=== PATIENT | female | born 1940 | race Caucasian/White ===

== ENCOUNTER 2016-08-09 10:39 | Day surgery (SDC) | payer OTHER ==
[~2016-08-09 10:39] MED LIST: LR 1,000 ML ONE
[2016-08-09] MEDS ORDERED: LR 1,000 ML ONE ×2 (11:32→12:47)
[2016-08-09] MEDS ORDERED: MYLICON DROPS (DOSE) MISC ONE (13:40)
[2016-08-09] MEDS ORDERED: DIPRIVAN 1% ONE (14:18)
[2016-08-09] MEDS ORDERED: NEO-SYNEPHRINE ONE (14:39)
[2016-08-09] MEDS ORDERED: XYLOCAINE-MPF 2% ONE (14:40)
[2016-08-09] MEDS ORDERED: EPHEDRINE ONE (14:40)
[2016-08-09 14:57] VITALS: BP 130/53
--- NOTE | 2016-08-09 15:27 | OPERATIVE NOTE ---
PROCEDURE DATE: 08/09/2016 PROCEDURE: EGD, colonoscopy, polypectomy. PREOPERATIVE DIAGNOSIS: Dyspepsia, weight loss and history of colon polyp. POSTOPERATIVE DIAGNOSIS: Hiatal hernia otherwise normal EGD. Colon polyps and diverticulosis. HISTORY: This is a 76-year-old, white female, has had dyspepsia and has been losing weight. She has history of colon polyp. Panendoscopy was done to identify the etiology and would treat accordingly. PROCEDURE: Informed consent obtained from the patient. Patient brought to the endoscopy unit and was premedicated as per Anesthesia. After adequate sedation, while she was lying in left lateral position, the gastroscope was introduced into the posterior pharynx and advanced under direct vision into the esophagus. Esophagus in the upper middle part was normal. Distal esophagus showed 2 cm long sliding hiatal hernia without any evidence of esophagitis, webs, rings, varices. The scope was passed through the esophagus into the stomach. Stomach was examined both in straight and retroflexed view, which revealed normal cardia, fundus, body, and antrum. The scope was then passed through the normal pylorus, into the duodenal bulb, and then 2nd part duodenum. Both appeared to be normal. Scope was removed. Patient was then repositioned for colonoscopy. Digital rectal exam was performed, which was normal. The scope was then gently introduced into the rectum and advanced under direct vision through the parts of colon, all the way up to the cecum. The cecum was identified by ileocecal valve and appendiceal orifice. The scope was withdrawn paying close attention to details. Preparation was good. The visualized portion of the colon revealed 1 polyp in the hepatic flexure and the 2nd polyp in the splenic flexure. These were 5-6 mm in size, smooth surface. Polypectomy was performed by snare cautery without difficulty. No complications noted. Left side of the colon showed evidence of moderate diverticulosis. These diverticula were present predominantly in the sigmoid colon area. Retroflexed view of rectum revealed no pathology. Scope was then removed. Patient tolerated the procedure well. No complications noted. Patient was then transferred to the recovery area in a stable condition. IMPRESSION: 1. Hiatal hernia, otherwise normal EGD. 2. Colon polyps. Polypectomy performed. 3. Diverticulosis, very extensive. RECOMMENDATIONS: I would start her on MiraLAX 17 g in a glass of water or juice every day. Continue high fiber, high residue diet and plenty of fluid to drink daily. I will follow up the biopsy report in 2 weeks. Follow up with me in 6-8 weeks and follow up with Dr. Perales as scheduled.
== END 2016-08-09 15:01 | disposition home or self-care (01) ==
LOC: ENDO 10:39
PROVIDERS: ATTEND Internal Medicine Gastroenterology
DX: D12.3 Benign neoplasm of transverse colon (principal); R10.13 Epigastric pain; K44.9 Diaphragmatic hernia without obstruction or gangrene; K57.30 Diverticulosis of large intestine without perforation or abscess without bleeding; J44.9 Chronic obstructive pulmonary disease, unspecified; I10 Essential (primary) hypertension
CPT/HCPCS: 88305; J2370; J7120

== ENCOUNTER 2019-07-07 08:52 | Inpatient (IN) ==
[2019-07-07] MEDS ORDERED: NS 1,000 ML IV ONE (09:04)
--- NOTE | 2019-07-07 09:06 | PROVIDER DOCUMENTATION ---
HPI-Syncope/Dizziness - General Stated Complaint: neuropathy Time Seen by Provider: 07/07/19 09:00 Source: patient, EMS Allergies/Adverse Reactions: Patient Allergies Allergy/AdvReac Type Severity Reaction Status Date / Time Penicillins Allergy Intermediate RASH Verified 11/06/17 05:37 Home Medications: Home Medication List Medication Instructions Recorded Confirmed Last Taken Type Albuterol Sulfate Inhaler 2 puff IH PRN PRN 12/10/12 11/06/17 1 Week Ago History [Ventolin Hfa] ~10/30/17 Digoxin [Lanoxin] 125 microgm PO DAILY 12/10/12 10/31/17 11/05/17 09:00 History Estradiol 0.5 mg PO DAILY 12/10/12 10/31/17 11/05/17 09:00 History Losartan [Cozaar] 0.5 tab PO DAILY 12/10/12 10/31/17 11/05/17 09:00 History Omeprazole [Prilosec] 20 mg PO DAILY@0700 12/10/12 10/31/17 11/05/17 09:00 History Pramipexole [Mirapex] 0.25 mg PO BID 12/10/12 11/06/17 11/05/17 21:00 History Furosemide [Lasix] 20 mg PO EVERY OTHER DAY 11/02/14 11/06/17 11/04/17 09:00 History Lorazepam 0.5 mg PO QHS 11/02/14 11/06/17 11/05/17 09:00 History Spironolactone [Aldactone] 25 mg PO DAILY 11/02/14 10/31/17 11/05/17 09:00 History Aspirin 81 mg PO DAILY 08/07/16 11/06/17 11/05/17 09:00 History Furosemide 40 mg PO EVERY OTHER DAY 08/07/16 10/31/17 11/05/17 09:00 History Budesonide/Formoterol Fumarate 10.2 gm IH BID 10/31/17 10/31/17 11/05/17 21:00 History [Symbicort 160-4.5 Mcg Inhaler] Cyclobenzaprine [Flexeril] 5 mg PO DAILY 10/31/17 11/06/17 11/05/17 09:00 History Ipratropium/Albuterol Sulfate 3 ml IH 4XDAY 10/31/17 10/31/17 11/05/17 21:00 History [Iprat-Albut 0.5-3(2.5) mg/3 ml] Multivitamin [Multivitamins] 1 each PO DAILY 10/31/17 10/31/17 11/05/17 09:00 History Sulindac 150 mg PO DAILY 10/31/17 10/31/17 11/05/17 09:00 History Umeclidinium [place] [Incruse 62.5 mcg IH DAILY 10/31/17 10/31/17 11/05/17 09:00 History Ellipta] Hydrocodone/APAP 7.5 mg/325 mg 1 ea PO Q4H PRN PRN #14 tab 11/07/17 Unknown Rx [Orient-7.5] - History of Present Illness-Syncope/Dizzy Nature of Presenting Problem: Patient brought by EMS for chief complaint of "flare-up of neuropathy." Patient states she has frequent falls and passes out a lot, and has been having several admissions and work-ups in the past by Dr. Perales, and "no one can find out why I keep doing this." States she has fairly frequent episodes where she will pass out or fall and not remember the circumstances surrounding the fall. States this morning she got up to go to the bathroom, remembers going into the restroom, then found her self on the floor near her front door. Patient said she crawled to the door to help herself up and called 911. Denies and pain or injury. Denies incontinence of urine or stool. Denies tongue injury. Last time this occurred, was two weeks ago, when she "fell flat on my face," but she did not seek treatment afterwards. Prior Episodes: reports: recent history Onset/Duration: reports: unsure, abrupt, just prior to arrival Timing: reports: improving, constant, changing over time Position/Activity at time of episode: reports: activity (had just gone to the bathroom) Symptoms prior to episode: reports: none Context: reports: unknown, collapsed. denies: incontinent of urine, incontinent of stool Loss of Consciousness: unsure Location of injury. (If syncope resulted in an injury.): reports: none Current Symptoms: reports: none/feels normal Similar symptoms previously: reports: workup for same problem Recently Seen Here or By Another Healthcare Provider: No (sees Dr. Perales frequently, has an appointment tomorrow.) - Dizziness Severity in ED: reports: mild Dizziness Related Current/Associated Symptoms: reports: none/feels normal Any recent trauma/injury?: reports: minor (2 weeks ago), to head Modifying Factors: improves with: nothing Patient usually:: reports: walks without assistance Review of Systems - Adult - REVIEW OF SYSTEMS - ADULT Constitutional: reports: no symptoms reported Eyes: reports: no symptoms reported Ears, Nose, Mouth & Throat: reports: no symptoms reported Cardiovascular: reports: no symptoms reported Respiratory: reports: no symptoms reported Gastrointestinal: reports: no symptoms reported Genitourinary: reports: no symptoms reported Musculoskeletal: reports: no symptoms reported Integumentary: reports: no symptoms reported Neurological: reports: no symptoms reported Psychiatric: reports: no symptoms reported Endocrine: reports: no symptoms reported Hematologic/Lymphatic: reports: no symptoms reported Allergic/Immunologic: reports: no symptoms reported All Other Systems: Reviewed and Negative Past History - Adult - PAST MEDICAL HISTORY-ADULT Review of Records: reports: Old Records Reviewed, Nursing Assessment Review, Medications Reviewed, Social history reviewed & non-contributory. Major Childhood Illnesses: reports: denies history Cardiovascular: reports: cardiac disease, CHF, HTN Respiratory: reports: COPD Gastrointestinal: reports: denies history Obstetrical/Gynecological: reports: denies history Genitourinary: reports: denies history Musculoskeletal: reports: denies history Neurological: reports: other (peripheral neuropathy, chronic weakness) Psychiatric: reports: denies history Endocrine/Immune: reports: denies history Other Conditions: reports: denies history - PRIOR SURGERIES/PROCEDURES Surgical/Procedure History: reports: reviewed, not pertinent - IMMUNIZATION STATUS Childhood Immunizations: UTD - FAMILY HISTORY Family History: reviewed, not pertinent - SOCIAL HISTORY Smoking: non-smoker Substance Use: none/never Alcohol Use Frequency: never Living Situation: alone Physical Exam-General - PHYSICAL EXAM-ADULT Initial Vital Signs Reviewed: Yes (VSSAF) - CONSTITUTIONAL General Appearance: appears well, alert, no apparent distress - EYES Eyes: PERRL/EOMI, pink conjunctivae - HEAD, EARS, NOSE, MOUTH & THROAT HENMT: normocephalic/atraumatic, moist mucous membranes, normal ENT inspection, other (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 negative: meningismus - RESPIRATORY Respiratory: chest non-tender, lungs clear, normal breath sounds, no pleuratic chest pain, no respiratory distress, no accessory muscle use - CARDIOVASCULAR Cardiovascular: normal peripheral pulses, regular rate, rhythm, no edema, no JVD , systolic murmur, gallop/S3. negative: no gallop, no murmur - GASTROINTESTINAL (ABDOMEN) Abdominal Exam: normal bowel sounds, non tender, soft, no organomegaly, no pulsatile mass - LYMPHATIC Lymphatic: no adenopathy - MUSCULOSKELETAL Back Exam: normal inspection, no CVA tenderness, no vertebral tenderness Extremity: normal range of motion, no pedal edema, no calf tenderness, normal capillary refill, tenderness (and erythema to left foot.) Peripheral Pulses: radial (R): 2+, radial (L): 2+, dorsalis-pedis (R): 1+, dorsalis-pedis (L): 1+ - SKIN Integumentary: normal color, normal turgor, warm/dry, erythema (to left foot) - NEUROLOGIC 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, grossly normal, no motor/sensory deficits - PSYCHIATRIC Psych/Mental Status: normal mood/affect, normal thought content, normal thought process, oriented x 3 Progress - PLAN OF CARE/RESULTS Progress/Plan/Lab Results: Vital Signs - 8 hr 07/07/19 09:51 07/07/19 10:53 Temperature 98.1 F Pulse Rate 100 H 99 H Respiratory Rate 20 25 H Blood Pressure 168/91 190/96 O2 Sat by Pulse Oximetry 100 96 Laboratory Results - last 24 hr 07/07/19 07/07/19 07/07/19 09:48 09:48 09:58 WBC 11.36 H RBC 4.94 Hgb 14.5 Hct 47.1 H MCV 95.3 MCH 29.4 MCHC 30.8 L RDW Std Deviation 13.1 Plt Count 264 MPV 10.0 Immature Gran % (Auto) 0.2 Neut % (Auto) 80.3 H Lymph % (Auto) 12.2 L [place] % (Auto) 6.0 Eos % (Auto) 0.7 Baso % (Auto) 0.6 Immature Gran # (Auto) 0.02 Neut # (Auto) 9.12 H Lymph # (Auto) 1.39 [place] # (Auto) 0.68 H Eos # (Auto) 0.08 Baso # (Auto) 0.07 PT INR PTT (Actin FS) Sodium 140 Potassium 4.2 Chloride 98 Carbon Dioxide 30 Anion Gap 12 BUN 20 Creatinine 0.6 Estimated GFR/1.73 m2 > 60 BUN/Creatinine Ratio 33 Glucose 96 POC Glucose Calculated Osmolality 282 Calcium 9.5 Magnesium Total Bilirubin 0.56 AST 34 H ALT 14 Alkaline Phosphatase 91 Troponin T High Sens Zpz-H-Snhhjrkxqge Pept Total Protein 6.9 Albumin 3.9 Globulin 3.0 Albumin/Globulin Ratio 1.3 Plasma Lactate TSH Urine Source Urine Color Urine Turbidity Urine pH Ur Specific Half Way Urine Protein Ur Glucose (Stick) Ur Ketones (Stick) Urine Blood Urine Nitrite Urine Bilirubin Urobilinogen Dipstick Urine Leukocytes Urine WBC (Auto) Urine RBC (Auto) U Epithel Cells (Auto) Urine Bacteria (Auto) Digoxin 0.8 L Urine Opiates Screen Ur Oxycodone Screen Ur Methadone, Qual Ur Barbiturates Screen Ur Phencyclidine Scrn Ur Amphetamines Screen U Benzodiazepines Scrn Urine Cocaine Screen U Cannabinoids Screen Plasma/Serum Ethyl Alc 07/07/19 07/07/19 07/07/19 09:58 09:58 09:58 WBC RBC Hgb Hct MCV MCH MCHC RDW Std Deviation Plt Count MPV Immature Gran % (Auto) Neut % (Auto) Lymph % (Auto) [place] % (Auto) Eos % (Auto) Baso % (Auto) Immature Gran # (Auto) Neut # (Auto) Lymph # (Auto) [place] # (Auto) Eos # (Auto) Baso # (Auto) PT 12.8 INR 0.95 PTT (Actin FS) 33.0 Sodium Potassium Chloride Carbon Dioxide Anion Gap BUN Creatinine Estimated GFR/1.73 m2 BUN/Creatinine Ratio Glucose POC Glucose Calculated Osmolality Calcium Magnesium Total Bilirubin AST ALT Alkaline Phosphatase Troponin T High Sens 41 H [id number]-Dlpjspqizmc Pept Total Protein Albumin Globulin Albumin/Globulin Ratio Plasma Lactate TSH 2.57 Urine Source Urine Color Urine Turbidity Urine pH Ur Specific Half Way Urine Protein Ur Glucose (Stick) Ur Ketones (Stick) Urine Blood Urine Nitrite Urine Bilirubin Urobilinogen Dipstick Urine Leukocytes Urine WBC (Auto) Urine RBC (Auto) U Epithel Cells (Auto) Urine Bacteria (Auto) Digoxin Urine Opiates Screen Ur Oxycodone Screen Ur Methadone, Qual Ur Barbiturates Screen Ur Phencyclidine Scrn Ur Amphetamines Screen U Benzodiazepines Scrn Urine Cocaine Screen U Cannabinoids Screen Plasma/Serum Ethyl Alc 07/07/19 07/07/19 07/07/19 09:58 09:58 09:58 WBC RBC Hgb Hct MCV MCH MCHC RDW Std Deviation Plt Count MPV Immature Gran % (Auto) Neut % (Auto) Lymph % (Auto) [place] % (Auto) Eos % (Auto) Baso % (Auto) Immature Gran # (Auto) Neut # (Auto) Lymph # (Auto) [place] # (Auto) Eos # (Auto) Baso # (Auto) PT INR PTT (Actin FS) Sodium Potassium Chloride Carbon Dioxide Anion Gap BUN Creatinine Estimated GFR/1.73 m2 BUN/Creatinine Ratio Glucose POC Glucose Calculated Osmolality Calcium Magnesium 1.9 Total Bilirubin AST ALT Alkaline Phosphatase Troponin T High Sens [id number]-K-Qcyzzgjcvdn Pept 1998 H Total Protein Albumin Globulin Albumin/Globulin Ratio Plasma Lactate TSH Urine Source Urine Color Urine Turbidity Urine pH Ur Specific Half Way Urine Protein Ur Glucose (Stick) Ur Ketones (Stick) Urine Blood Urine Nitrite Urine Bilirubin Urobilinogen Dipstick Urine Leukocytes Urine WBC (Auto) Urine RBC (Auto) U Epithel Cells (Auto) Urine Bacteria (Auto) Digoxin Urine Opiates Screen Ur Oxycodone Screen Ur Methadone, Qual Ur Barbiturates Screen Ur Phencyclidine Scrn Ur Amphetamines Screen U Benzodiazepines Scrn Urine Cocaine Screen U Cannabinoids Screen Plasma/Serum Ethyl Alc 07/07/19 07/07/19 07/07/19 10:05 10:06 10:38 WBC RBC Hgb Hct MCV MCH MCHC RDW Std Deviation Plt Count MPV Immature Gran % (Auto) Neut % (Auto) Lymph % (Auto) [place] % (Auto) Eos % (Auto) Baso % (Auto) Immature Gran # (Auto) Neut # (Auto) Lymph # (Auto) [place] # (Auto) Eos # (Auto) Baso # (Auto) PT INR PTT (Actin FS) Sodium Potassium Chloride Carbon Dioxide Anion Gap BUN Creatinine Estimated GFR/1.73 m2 BUN/Creatinine Ratio Glucose POC Glucose 78 Calculated Osmolality Calcium Magnesium Total Bilirubin AST ALT Alkaline Phosphatase Troponin T High Sens Uro-K-Favkbctdtwp Pept Total Protein Albumin Globulin Albumin/Globulin Ratio Plasma Lactate 1.9 TSH Urine Source CATH Urine Color YELLOW Urine Turbidity CLEAR Urine pH 7.[address] 1.018 Urine Protein TRACE A Ur Glucose (Stick) NEGATIVE Ur Ketones (Stick) NEGATIVE Urine Blood NEGATIVE Urine Nitrite NEGATIVE Urine Bilirubin NEGATIVE Urobilinogen Dipstick NORMAL Urine Leukocytes NEGATIVE Urine WBC (Auto) <10 Urine RBC (Auto) <10 U Epithel Cells (Auto) <10 Urine Bacteria (Auto) NEGATIVE Digoxin Urine Opiates Screen Ur Oxycodone Screen Ur Methadone, Qual Ur Barbiturates Screen Ur Phencyclidine Scrn Ur Amphetamines Screen U Benzodiazepines Scrn Urine Cocaine Screen U Cannabinoids Screen Plasma/Serum Ethyl Alc 07/07/19 10:38 WBC RBC Hgb Hct MCV MCH MCHC RDW Std Deviation Plt Count MPV Immature Gran % (Auto) Neut % (Auto) Lymph % (Auto) [place] % (Auto) Eos % (Auto) Baso % (Auto) Immature Gran # (Auto) Neut # (Auto) Lymph # (Auto) [place] # (Auto) Eos # (Auto) Baso # (Auto) PT INR PTT (Actin FS) Sodium Potassium Chloride Carbon Dioxide Anion Gap BUN Creatinine Estimated GFR/1.73 m2 BUN/Creatinine Ratio Glucose POC Glucose Calculated Osmolality Calcium Magnesium Total Bilirubin AST ALT Alkaline Phosphatase Troponin T High Sens Yvb-A-Zrlojxetvax Pept Total Protein Albumin Globulin Albumin/Globulin Ratio Plasma Lactate TSH Urine Source Urine Color Urine Turbidity Urine pH Ur Specific Half Way Urine Protein Ur Glucose (Stick) Ur Ketones (Stick) Urine Blood Urine Nitrite Urine Bilirubin Urobilinogen Dipstick Urine Leukocytes Urine WBC (Auto) Urine RBC (Auto) U Epithel Cells (Auto) Urine Bacteria (Auto) Digoxin Urine Opiates Screen NONE DETECTED Ur Oxycodone Screen NONE DETECTED Ur Methadone, Qual NONE DETECTED Ur Barbiturates Screen NONE DETECTED Ur Phencyclidine Scrn NONE DETECTED Ur Amphetamines Screen NONE DETECTED U Benzodiazepines Scrn NONE DETECTED Urine Cocaine Screen NONE DETECTED U Cannabinoids Screen NONE DETECTED Plasma/Serum Ethyl Alc Orders Category Date Time Status Cardiac Monitoring DIRECTED Care 07/07/19 09:04 Active Finger Stick Blood Sugar (ED) DIRECTED Care 07/07/19 09:04 Active Oxygen Therapy- ED Nursing DIRECTED Care 07/07/19 09:04 Active Saline Loc NOW Care 07/07/19 09:04 Active Heart Healthy Diet Diet 07/07/19 10:23 Active CHEST-PORTABLE [RAD] Stat Exams 07/07/19 09:[address] HEAD W/O CONTRAST [CT] Stat Exams 07/07/19 09:04 Completed ALCOHOL BLOOD Stat Lab 07/07/19 09:58 Completed BLOOD CULTURE [BLDCUL] Stat Lab 07/07/19 09:58 Results CBC WITH ELECTRONIC DIFF [HEME] Stat Lab 07/07/19 09:48 Completed COMPREHENSIVE METABOLIC PANEL [CHEM] Stat Lab 07/07/19 09:48 Completed DIGOXIN [TDM] Stat Lab 07/07/19 09:58 Completed LACTATE, PLASMA [CHEM] Stat Lab 07/07/19 10:05 Completed MAGNESIUM [CHEM] Stat Lab 07/07/19 09:58 Completed PRO B-NATRIURETIC PEPTIDE Stat Lab 07/07/19 09:58 Completed PROTIME WITH INR [COAG] Stat Lab 07/07/19 09:58 Completed PTT [COAG] Stat Lab 07/07/19 09:58 Completed TROPONIN T HIGH SENSITIVITY Stat Lab 07/07/19 09:58 Completed TSH Stat Lab 07/07/19 09:58 Completed URINALYSIS W/POSS RFLX CULT [URINALYSIS] Stat Lab 07/07/19 10:38 Completed URINE DRUG SCREEN Stat Lab 07/07/19 10:38 Completed 0.9% Sodium Chloride Inj [Ns] 1,000 ml Med 07/07/19 09:04 Discontinued IV 999 mls/hr Acetaminophen [Tylenol] Med 07/07/19 13:14 Discontinued 1,000 mg PO NOW ONE Clindamycin 900 mg/D5w Med 07/07/19 11:00 Discontinued 900 mg in 50 ml IV NOW Morphine Med 07/07/19 12:25 Discontinued 2 mg IV NOW ONE Ondansetron [Zofran] Med 07/07/19 12:25 Discontinued 4 mg IV NOW ONE Vancomycin 1 gm/Ns Med 07/07/19 10:40 Discontinued 1 gm in 250 ml IV NOW EKG [EKG] Stat Ther 07/07/19 09:04 Ordered Result Diagrams: 07/07/19 09:48 07/07/19 09:48 - REASSESSMENT Reassessment #1 Time Reassessed: 12:29 Status: improving (Given IVF and cleocin for cellulitis, morphine for pain) - EKG 1 Time of EKG reading by physician:: 08:59 EKG Read and Signed by:: Parish Parisi EKG Interpretation (*Must complete 3 of following elements*): Abnormal Rate: 100 Rhythm: NSR [place]: left QRS: LBB, poor R wave progression NH Interval: normal ST Wave: non-specific ST changes Prior EKG Comparison: unchanged from prior ([id number]) - CT/MRI 1 CT Study: Head Impression: Abnormal ( Signed EXAM: CT HEAD W/O CONTRAST HISTORY: stroke like symptoms TECHNIQUE: CT head without contrast COMPARISON: 02/25/2018 FINDINGS: No parenchymal hemorrhage. No epidural or subdural hematoma. No subarachnoid hemorrhage. There are chronic microvascular ischemic changes similar to the prior exam. No mass identified on this noncontrasted exam. No hydrocephalus. No sinus opacification. IMPRESSION: 1.No hemorrhage 2.Chronic microvascular ischemic changes This exam was performed using automated exposure control, adjustment of mA or kV according to patient size, and/or use of iterative reconstruction technique. Electronically signed by Julien Austin 07/07/2019 9:46 AM 07/07/19 0946 Interpreting Physician: Julien Austin MD Dictated Date/Time: 07/07/19 0945 cc: Parish Parisi MD; Juani Perales MD) - CONSULTS/PCP/HOSPITALIST Notification #1 *Consult/PCP/Hospitalist*: Diaz paged at 1220 Time Discussed: 13:17 Consult Disposition: Will see in ED, Admit Departure - Departure Date of Disposition Decision: 07/07/19 Time of Disposition Decision: 12:30 DIAGNOSIS: Syncope and collapse, Cellulitis of left foot Disposition: ADMITTED INPATIENT 09 Certified Medical Emergency: Emergent Condition: Fair Referrals and Follow-Ups: Juani Perales MD [Primary Care Provider] - - Critical Care Note This patient required my direct & personal management of CC.: No Attestation - Physician/ NERISSA Attestation Patient care was provided by Advanced Practice Provider:: No The physician spent face to face time with patient:: Yes Advanced Practice Provider documentation review:: Supervising physician onsite and consulted in the evaluation and care of this patient. The physician did have a face to face encounter with the patient.
--- NOTE | 2019-07-07 09:48 | Diag Imaging Result Doc PS360 ---
EXAM: CT HEAD W/O CONTRAST HISTORY: stroke like symptoms TECHNIQUE: CT head without contrast COMPARISON: 02/25/2018 FINDINGS: No parenchymal hemorrhage. No epidural or subdural hematoma. No subarachnoid hemorrhage. There are chronic microvascular ischemic changes similar to the prior exam. No mass identified on this noncontrasted exam. No hydrocephalus. No sinus opacification. IMPRESSION: 1.No hemorrhage 2.Chronic microvascular ischemic changes This exam was performed using automated exposure control, adjustment of mA or kV according to patient size, and/or use of iterative reconstruction technique. Electronically signed by Julien Austin 07/07/2019 9:46 AM
[2019-07-07 10:04] LABS: BASO# 0.07 X1000 (0.0-0.2); BASO% 0.6 % (0.0-0.8); EOS# 0.08 X1000 (0.0-0.7); EOS% 0.7 % (0.0-10.0); HEMATOCRIT 47.1 % (37.0-47.0); HEMOGLOBIN 14.5 g/dL (12.0-16.0); IMM GRAN# 0.02 X1000 (0.0-0.04); IMM GRAN% 0.2 % (0.0-0.5); LYMPH# 1.39 X1000 (1.2-3.4); LYMPH% 12.2 % (20.5-51.1); MCH 29.4 PG (27-31); MCHC 30.8 g/dL (33-37); MCV 95.3 FL (81-99); MONO# 0.68 X1000 (0.11-0.59); NEUT# 9.12 X1000 (1.4-6.5); NEUT% 80.3 % (42.2-75.2); PLT 264 X1000 (130-400); RBC 4.94 XMIL (4.2-5.4); RDW 13.1 % (11.5-14.5); WBC 11.36 X1000 (4.8-10.8)
[2019-07-07 10:16] LABS: AGAP 12; ALB/GLOB RATIO 1.3; ALBUMIN 3.9 g/dL (3.5-5.0); ALKALINE PHOSPHATASE 91 U/L (32-104); BUN 20 mg/dL (8-22); CALCIUM 9.5 mg/dL (8.8-10.2); CHLORIDE 98 mmol/L (98-107); COSMO 282; CREATININE 0.6 mg/dL (0.5-0.9); ESTIMATED GFR > 60; GLUCOSE 96 mg/dL (70-104); GOT 34 U/L (10-30); GPT 14 U/L (10-36); POTASSIUM 4.2 mmol/L (3.5-5.1); SODIUM 140 mmol/L (136-145); TCO2 30 mmol/L (25-35); TOTAL BILIRUBIN 0.56 mg/dL (0.20-1.00); TOTAL PROTEIN 6.9 g/dL (6.3-8.3)
[2019-07-07] MEDS ORDERED: CLINDAMYCIN 900 MG/NS 900 MG/50 ML IVPB IV ONE (10:40)
[2019-07-07] MEDS ORDERED: VANCOMYCIN 1 GM/NS 1 GM/250 ML IVPB IV ONE (10:40)
--- NOTE | 2019-07-07 10:53 | Diag Imaging Result Doc PS360 ---
EXAM: CHEST-PORTABLE 07/07/2019 HISTORY: stroke like symptoms TECHNIQUE: AP portable upright at 1016 COMMENT: There is hyperinflation of the lungs consistent with COPD. Considering differences in technique there has been no significant change since the previous study of 12/16/2012. IMPRESSION: COPD. Electronically signed by Norman Pandey 07/07/2019 10:51 AM
[2019-07-07 10:58] LABS: INR 0.95; PROTIME 12.8 Seconds (11.0-16.0)
[2019-07-07] MEDS ORDERED: CLINDAMYCIN 900 MG/D5W 900 MG/50 ML IVPB IV ONE (11:00)
[2019-07-07 11:02] LABS: URINE SOURCE CATH
[2019-07-07 11:06] LABS: BILIRUBIN URINE NEGATIVE (NEGATIVE); BLOOD URINE NEGATIVE (NEGATIVE); COLOR YELLOW; GLUCOSE URINE NEGATIVE (NEGATIVE); KETONE URINE NEGATIVE (NEGATIVE); LEUKOCYTES URINE NEGATIVE (NEGATIVE); NITRITE URINE NEGATIVE (NEGATIVE); PROTEIN URINE TRACE mg/dL (NEGATIVE); SP GRAVITY URINE 1.018; TURBIDITY URINE CLEAR (CLEAR); UROBILINOGEN URINE NORMAL (NORMAL)
[2019-07-07 11:07] LABS: UR EPITHELIAL CELLS <10 /HPF (<10); URINE BACTERIA NEGATIVE /HPF; URINE RBC <10 /HPF (<10); URINE WBC <10 /HPF (<10)
[2019-07-07 11:40] LABS: UR AMPHETAMINES QUAL NONE DETECTED (NONE DETECT); UR BARBITUATES QUAL NONE DETECTED (NONE DETECT); UR BENZODIAZEPIN QUAL NONE DETECTED (NONE DETECT); UR CANNABINOIDS QUAL NONE DETECTED (NONE DETECT); UR COCAINE QUAL NONE DETECTED (NONE DETECT); UR METHADONE QUAL NONE DETECTED (NONE DETECT); UR OPIATES QUAL NONE DETECTED (NONE DETECT); UR OXYCODONE QUAL NONE DETECTED (NONE DETECT); UR PCP QUAL NONE DETECTED (NONE DETECT)
[2019-07-07] MEDS ORDERED: MORPHINE IV ONE (12:25)
[2019-07-07] MEDS ORDERED: ZOFRAN IV ONE (12:25)
[2019-07-07] MEDS ORDERED: TYLENOL PO ONE (13:14)
[2019-07-07] MEDS ORDERED: ZOFRAN PO PRN (13:17)
--- NOTE | 2019-07-07 14:17 | EKG Report ---
Test Performed on : 07/07/2019 09:00:15 AM Test Reason : Stroke like symptoms Blood Pressure : / mmHG Vent. Rate : 100 BPM Atrial Rate : 100 BPM P-R Int : 144 ms QRS Dur : 138 ms QT Int : 368 ms P-R-T Axes : 084 -87 085 degrees QTc Int : 474 ms Normal sinus rhythm. Right atrial enlargement Left axis deviation Nonspecific intraventricular block Cannot rule out Anteroseptal infarct , age undetermined Abnormal ECG No previous ECGs available Unconfirmed Result
[2019-07-07] MEDS: ATIVAN PO SCH (23:34)
[2019-07-07] MEDS: MIRAPEX PO SCH (23:34)
[2019-07-07] MEDS: LEVAQUIN 500 MG/D5W 500 MG/100 ML IVPB IV SCH (23:34)
[2019-07-08] MEDS: TYLENOL PO PRN (02:00)
--- NOTE | 2019-07-08 04:47 | HISTORY AND PHYSICAL ---
SUBJECTIVE: Left leg swelling and redness. HISTORY OF PRESENT ILLNESS: 1. She is a 79-year-old, white female who has a syncope spells. Had a head injury. Recently seen in my office. Came back 2nd time in the ER, unable to walk with left leg swelling. Patient was found to have left leg cellulitis. Patient was seen in the ER. White cell count was high. The patient was brought in by EMS. She is losing weight. Extensive workup was done nothing was panned out. Basically admitted to the hospital for syncope workup. 2. Left leg cellulitis. 3. Cachexia. I spoke to the niece at bedside. 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 PAST SURGICAL HISTORY: Appendectomy, hysterectomy, bilateral cataract surgery, cholecystectomy, left inferior parathyroid adenoma excision. MEDICATIONS: Ventolin HFA 2 puffs as needed, Mirapex 0.25 p.o. b.i.d., losartan 50 daily, Lanoxin 125 daily, estradiol 0.5 mg daily, Prilosec 20 daily, lorazepam 0.5 at bedtime, Lasix 20 mg every other day, Aldactone 25 daily, aspirin 81 mg daily, Symbicort 160/4.5 one puff b.i.d., multivitamin 1 tablet daily, Flexeril 5 mg daily, DuoNeb q.4h as needed, Incruse 1 puff daily. ALLERGIES: Reported to penicillin. SOCIAL HISTORY: Single lives in [place]. No smoking. No alcohol. FAMILY HISTORY: Father at 96 from [place]. Mom of CHF at 92. HEALTH MAINTENANCE: Flu vaccine April 2019. Pneumococcal June 2014. Mammography May 2018. Colonoscopy August [address] Jarquin. REVIEW OF SYSTEMS: HEENT: Recent head injuries, some headaches. No vision problem. No earache. No sore throat. Neck: No neck pain. No goiter. No lymphadenopathies. Cardiopulmonary: No chest pain or shortness of breath. No PND. No orthopnea. GI: No difficulty in swallowing. No bleeding per rectum. : No history of hesitancy, frequency. Extremities: Left leg swelling. Neurologic: No focal symptoms or weakness. PHYSICAL EXAMINATION: VITAL SIGNS: Temperature is 97.8 degrees, pulse 93, blood pressure 116/69, on room air 99%, 5 feet 6, 83 pounds. HEENT: Very cachectic. Bruising is getting better. Pupils equal, reactive to light. TMs are normal. Nose and throat within normal limits. NECK: Supple. No lymphadenopathy. No goiter. CHEST: Bilateral air entry very poor. HEART: Sounds are very distant. ABDOMEN: Belly is soft, nontender. Good bowel sounds. EXTREMITIES: The left leg has cellulitis noted. NEUROLOGIC: No neurological deficits. INVESTIGATIONS: White cell count 11, hematocrit 47, platelets 264,000. PT/INR is normal. SMA 7 was normal. LFTs were normal. ProBNP 1998. Urinalysis is clear. Urine toxic screen is negative. RADIOLOGY PROCEDURES: CT head: No hemorrhage. Chronic microvascular ischemic changes. Chest x-ray: COPD. I did a CT of the chest, abdomen and pelvis May 2019: Advanced COPD. Right lower lobe noncalcified nodule, which is stable since 2010. Constipation. Myocardial perfusion scan was done by Dr. Vaz. No inducible ischemia. EF is about 46%. ASSESSMENT AND PLAN: 79-year-old white female admitted to the hospital. 1. Recurrent syncope, rule out cardiac arrhythmias. 2. Left leg cellulitis. IV antibiotics. 3. Chronic obstructive pulmonary disease with oxygen and bronchodilators. 4. Physical therapy consult for ambulation. 5. Reconcile home medications and we will follow up. cc: Gabo Perales MD
--- NOTE | 2019-07-08 07:23 | EKG Report ---
Test Performed on : 07/08/2019 06:58:49 AM Test Reason : cp Blood Pressure : / mmHG Vent. Rate : 097 BPM Atrial Rate : 097 BPM P-R Int : 176 ms QRS Dur : 126 ms QT Int : 364 ms P-R-T Axes : 082 -84 087 degrees QTc Int : 462 ms Normal sinus rhythm. Right atrial enlargement Left axis deviation Nonspecific intraventricular block Cannot rule out Anteroseptal infarct (cited on or before 07-JUL-2019) T wave abnormality, consider lateral ischemia Abnormal ECG When compared with ECG of 07-JUL-2019 09:00, (Unconfirmed) No significant change was found Confirmed by Matthew Haynes MD ([id number]) on 07/09/2019 12:14:56 PM
[2019-07-08] MEDS: FLEXERIL PO SCH (08:54)
[2019-07-08] MEDS: COZAAR PO SCH (08:55)
[2019-07-08] MEDS: MIRAPEX PO SCH ×2 (08:55→21:41)
[2019-07-08] MEDS: ASPIRIN PO SCH (08:55)
[2019-07-08] MEDS: ESTRACE PO SCH (08:55)
[2019-07-08] MEDS: SYMBICORT 160/4.5 MICROGM INHALER INH SCH ×2 (09:28→19:49)
[2019-07-08] MEDS: INCRUSE ELLIPTA INH SCH (09:29)
[2019-07-08] MEDS: DUONEB (A & A) INH PRN ×2 (09:30→16:31)
--- NOTE | 2019-07-08 20:36 | ECHO REPORT ---
ORDER DATE: 07/07/2019 MEASUREMENTS: Septal thickness 0.9, left ventricular internal diameter in diastole 4.9, posterior wall thickness 0.9, left ventricular internal diameter systole 4.4, aortic root 2.8, left atrium 2.5. SUMMARY: 1. Adequate quality study. 2. Aortic valve is trileaflet and opens normally on 2-dimensional images. Peak gradient across aortic valve is less than 10 mmHg. Mitral, tricuspid, and pulmonic valves are without evidence of structural abnormality with very mild mitral regurgitation, trace tricuspid regurgitation, and trace pulmonic insufficiency. The estimated systolic PA pressure by Doppler is 45 mmHg suggesting mild pulmonary hypertension. Aortic root is normal in size. 3. Normal left ventricle dimensions demonstrated. The estimated left ejection fraction approximately 35%. There is abnormal motion of anteroseptal wall and septum with combination of hypokinesis and paradoxical wall motion of the septum and anteroseptal wall. Paradoxical motion probably related to interventricular conduction abnormality. There is also inferior wall hypokinesis. Regional coronary disease is suggested. The left atrium, right atrium, right ventricle are normal in size with preserved right ventricular systolic function. 4. No pericardial effusion. 5. Appearance of inferior vena cava suggests normal central venous pressure. CONCLUSIONS: 1. Very mild mitral regurgitation. 2. Trace tricuspid regurgitation with mild pulmonary hypertension by Doppler. 3. Estimated left ejection fraction approximately 35% with abnormal motion of septum, anteroseptal wall, and inferior wall. cc: MD Gabo Cleveland MD MTDD
[2019-07-08] MEDS: LEVAQUIN 500 MG/D5W 500 MG/100 ML IVPB IV SCH (21:41)
[2019-07-08] MEDS: ATIVAN PO SCH (21:41)
--- NOTE | 2019-07-08 21:46 | PROGRESS NOTE ---
DATE: 07/08/2019 SUBJECTIVE: The patient is a little better. No other complaints. PHYSICAL EXAM: Patient is in welfare manager. Vital signs: Temperature is 98.9 degrees, blood pressure 95/64. HEENT: Within normal limits. Neck: Supple. Chest: Bilateral air entry. Heart: Sounds are regular. Abdomen: Belly is soft, nontender. Good bowel sounds. Left flank cellulitis is getting better. INVESTIGATIONS: CK was normal. ASSESSMENT AND PLAN: 1. Syncope. Rule out cardiac arrhythmias. Previous stress test was negative. 2. History of left bundle branch block. 3. Left leg cellulitis. 4. Chronic obstructive pulmonary disease. 5. Cachexia. Continue IV antibiotics with Levaquin. Check the echocardiography for left ventricular function. Continue on welfare manager and we will follow. Physical therapy for ambulation. LEVEL OF DOCUMENTATION: 25 minutes. cc: Gabo Perales MD
[2019-07-09] MEDS: ESTRACE PO SCH (08:43)
[2019-07-09] MEDS: MIRAPEX PO SCH ×2 (08:43→22:02)
[2019-07-09] MEDS: FLEXERIL PO SCH (08:44)
[2019-07-09] MEDS: COZAAR PO SCH (08:44)
[2019-07-09] MEDS: ASPIRIN PO SCH (08:44)
[2019-07-09] MEDS: SYMBICORT 160/4.5 MICROGM INHALER INH SCH ×2 (11:12→20:10)
--- NOTE | 2019-07-09 16:19 | EKG Report ---
Test Performed on : 07/09/2019 4:03:47 PM Test Reason : syncope Blood Pressure : / mmHG Vent. Rate : 108 BPM Atrial Rate : 108 BPM P-R Int : 170 ms QRS Dur : 124 ms QT Int : 330 ms P-R-T Axes : 085 -67 083 degrees QTc Int : 442 ms Sinus tachycardia. Left axis deviation Anterior infarct (cited on or before 07-JUL-2019) Abnormal ECG When compared with ECG of 08-JUL-2019 06:58, No significant change was found Confirmed by Matthew Haynes MD ([id number]) on 07/10/2019 8:10:37 AM
--- NOTE | 2019-07-09 21:10 | PROGRESS NOTE ---
DATE: 07/09/2019 SUBJECTIVE: Patient is a little better. No complaints. PHYSICAL EXAMINATION: Vital signs: Temperature is 98 degrees. Tachycardic. Vitals are stable. General: Cachectic. Chest: Bilateral air entry. Heart: Sounds are regular. Abdomen: Belly is soft, nontender. Good bowel sounds. Extremities: Left leg swelling is better. INVESTIGATIONS: Blood cultures are negative. ASSESSMENT AND PLAN: 1. Syncope. Rule out cardiac arrhythmias. 2. Left bundle branch block. 3. Decreased left ventricular systolic function. Consider cardiology consult. 4. Left leg cellulitis. Continue on intravenous antibiotics with Levaquin and will follow up. LEVEL OF DOCUMENTATION: 25 minutes. cc: Gabo Perales MD
--- NOTE | 2019-07-09 21:36 | CONSULTATION ---
DATE OF CONSULTATION: 07/09/2019 IMPRESSION: 1. Recurrent syncope suspicious for possible cardiac etiology. 2. Cardiomyopathy with left ventricular ejection fraction ranging from 30 to 40 percent. 3. Severe chronic obstructive pulmonary disease. Patient requires home oxygen. 4. Hypertension. 5. Hyperlipidemia. 6. Significantly underweight. RECOMMENDATIONS: 1. Telemetry observation. 2. Consider pursuit of implantable loop recorder given suspicious nature of patient's symptoms. We will hold patient NPO after tonight an try and arrange for implanted loop tomorrow. 3. For now medical management otherwise from a cardiovascular standpoint given the patient's significant comorbidities and apparent frailty. She has limited functional status as well. HISTORY: This 79-year-old white female with past history of severe COPD requiring chronic oxygen, cardiomyopathy, hypertension, hyperlipidemia, and significantly underweight was admitted for further evaluation of recurrent syncope. She relates that over the last 3 or 4 weeks she has had several instances of passing out abruptly without warning. On 2 occasions, she really did not suffer much in the way of injury. However, she recently had episode of passing out while walking across the room without warning which she suffered a bruise on her head. She relates no symptoms that warn her she is about to pass and she awakes pretty much right away after falling. There has been no angina. She does have chronic tendency for shortness of breath related to her severe COPD. She has history of cardiomyopathy with left ventricular ejection fraction measured anywhere from 30 to 40 percent. She has left bundle branch block. Lexiscan myocardial perfusion study 5 months ago was pretty much inconclusive. PAST MEDICAL HISTORY: 1. Severe COPD requiring chronic oxygen. 2. Cardiomyopathy. 3. Hypertension. 4. Hyperlipidemia. 5. Osteoporosis with history of L1 compression fracture. 6. Hiatal hernia with esophageal stricture. 7. Significantly underweight. 8. Hyperparathyroidism due to parathyroid adenoma which was excised. PAST SURGICAL HISTORY: Also includes appendectomy, hysterectomy, bilateral cataract surgery, and cholecystectomy. ALLERGIES: She is allergic or intolerant to penicillin. MEDICATIONS PRIOR TO ADMISSION: As listed. SOCIAL HISTORY: She lives in [facility]. She resides in a senior apartment. She no longer drives a car. She no longer smokes cigarettes. She does not use alcohol. FAMILY HISTORY: Noteworthy for longevity with her father living to age 96 and dying from a heart attack and her mother living to age 92 and dying of congestive heart failure. REVIEW OF SYSTEMS: Pulmonary: Noteworthy for chronic tendency for dyspnea. Gastrointestinal: Negative for diarrhea. Noncontributory otherwise. Constitutional: Negative/noncontributory. Remainder of review of systems negative/noncontributory with 14 total systems reviewed. PHYSICAL EXAMINATION: General: This is a very thin underweight elderly white female in no distress on supplemental oxygen per nasal cannula. Vital signs: Blood pressure 111/53, heart rate 102 with ECG monitor showing sinus rhythm. Oxygen saturation 96% on nasal cannula oxygen at 3 L/minute. HEENT: Extraocular movements appear intact. Mucous membranes are moist. Neck: Supple without jugular venous distention. There are no carotid bruits. Chest: Clear to auscultation with somewhat diminished breath sounds diffusely. Cardiac Exam: Reveals a regular rate and rhythm without appreciable murmur or gallop. Abdomen: Soft. Bowel sounds are normal. Extremities: Without edema. Neurologic: Reveals her to be alert and fully oriented. Speech is fluent. She moves all 4 extremities equally well. Skin: Warm and dry. Psych exam: Reveals her mood to be appropriate. PERTINENT DATA: Twelve lead EKG demonstrates sinus rhythm, right atrial abnormality, left axis deviation probably due to left anterior fascicular block and nonspecific interventricular conduction block. Cannot exclude previous anterior infarct of undetermined age. LABORATORY DATA: Includes a white blood cell count 11.36, hematocrit 47.1, hemoglobin 14.5, platelet count 264,000. ProTime 12.8, INR 0.95, PTT 33. Sodium 140, potassium 4.2, chloride 98, carbon dioxide 32, BUN 20, creatinine 0.6. Glucose 96. AST 34, ALT 14. Bilirubin 0.56. CPK 77, troponin T high sensitivity 39. Repeat troponin T high sensitivity 41. TSH 2.57. cc: MD Gabo Cleveland MD
[2019-07-09] MEDS: LEVAQUIN 500 MG/D5W 500 MG/100 ML IVPB IV SCH (22:02)
[2019-07-09] MEDS: ATIVAN PO SCH (22:02)
--- NOTE | 2019-07-10 07:40 | EKG Report ---
Test Performed on : 07/10/2019 07:13:54 AM Test Reason : syncope Blood Pressure : / mmHG Vent. Rate : 086 BPM Atrial Rate : 086 BPM P-R Int : 146 ms QRS Dur : 136 ms QT Int : 354 ms P-R-T Axes : 082 -80 088 degrees QTc Int : 423 ms Normal sinus rhythm. Right atrial enlargement Left axis deviation Left bundle branch block Abnormal ECG When compared with ECG of 09-JUL-2019 16:03, (Unconfirmed) Left bundle branch block is now present Criteria for Anterior infarct are no longer present Confirmed by Matthew Haynes MD ([id number]) on 07/10/2019 8:11:22 AM
[2019-07-10] MEDS: ASPIRIN PO SCH (08:33)
[2019-07-10] MEDS: FLEXERIL PO SCH (08:37)
[2019-07-10] MEDS: COZAAR PO SCH (08:37)
[2019-07-10] MEDS: MIRAPEX PO SCH ×2 (08:37→22:12)
[2019-07-10] MEDS: ESTRACE PO SCH (08:37)
[2019-07-10] MEDS: INCRUSE ELLIPTA INH SCH (09:17)
[2019-07-10] MEDS: SYMBICORT 160/4.5 MICROGM INHALER INH SCH ×2 (09:17→19:55)
--- NOTE | 2019-07-10 13:20 | CARDIAC CATH REPORT ---
PROCEDURE NAME: - PROCEDURE PERFORMED: Implantable loop recorder. INDICATION: Syncope. PROCEDURE IN DETAIL: Ms. Smart was brought to the catheterization laboratory in a fasting state. She was prepped in the usual fashion. She was anesthetized with lidocaine over the anterior chest wall. The patient has very little subcutaneous fat, so efforts were made to ensure not to implant too deeply. There was an incision made to the chest wall. Blunt dissection. The device was implanted with the implanting devices. One suture was placed with 3-0 Polysorb to decrease tension across the wound. It will be dressed with a Steri-Strips as well, and Tegaderm. There were 5 mL of blood loss. No apparent complications. The device is a [employer] LINQ serial number [id number]. cc: MD Gabo Reina MD
--- NOTE | 2019-07-10 17:33 | CARDIOLOGY PROGRESS NOTE ---
DATE: 07/10/2019 SUBJECTIVE: Patient had implantable loop recorder earlier today. She continues without any significant chest discomfort or shortness of breath, on supplemental oxygen per nasal cannula. OBJECTIVE: Blood pressure 130/55, heart rate 93, oxygen saturation 98% on nasal cannula oxygen at 2 L/minute. There is no significant jugular venous distention. Auscultation of the chest reveals diminished breath sounds diffusely.Cardiac: Regular rate and rhythm without appreciable murmur or gallop. There is no evidence of peripheral edema. IMPRESSION: 1. Recurrent syncope suspicious for possible cardiac arrhythmia. 2. Cardiomyopathy with left ventricular ejection fraction of 30 to 40 percent. No signs of congestive heart failure presently. 3. Severe chronic obstructive pulmonary disease requiring home oxygen. 4. Hypertension. 5. Hyperlipidemia. 6. Significantly underweight and frail. RECOMMENDATIONS: Reasonable for patient to be discharged to home soon and follow up with her regular dryer operator, Dr. Jeffery Oconnor, in 3 weeks or so. I will plan on seeing her again as an inpatient on an as-needed basis. cc: MD Gabo Cleveland MD
--- NOTE | 2019-07-10 21:36 | PROGRESS NOTE ---
DATE: 07/10/2019 SUBJECTIVE: Appreciate cardiology consult. I was confused. The patient has been scheduled for left heart catheterization. In fact, instead of having left heart catheterization, they were planning to do insert loop monitor for syncope. OBJECTIVE: Vital signs: Temperature is 98.8 degrees, pulse is 87, blood pressure is stable. HEENT Exam: Within normal limits. Neck: Supple. Chest: Bilateral air entry. Cardiovascular: Heart sounds are regular. Abdomen: Belly is soft, nontender. Left foot is getting better. INVESTIGATIONS: None reported. ASSESSMENT AND PLAN: 1. Recurrent syncope with underlying left bundle. 2. Systolic dysfunction EF 30%, asymptomatic. 3. End-stage chronic obstructive pulmonary disease. 4. Malnutrition. 5. Left leg cellulitis. We will change the Levaquin to 50 mg IV daily as per the pharmacy dose, and the patient is going to insert loop monitor instead of left heart catheterization, and we will discuss with the family. Continue present treatment. LEVEL OF DOCUMENTATION: 25 minutes. cc: Gabo Perales MD
[2019-07-10] MEDS: ATIVAN PO SCH (22:12)
[2019-07-11] MEDS: LEVAQUIN 250 MG/D5W 250 MG/50 ML IVPB IV SCH ×2 (05:44→21:47)
[2019-07-11] MEDS: SYMBICORT 160/4.5 MICROGM INHALER INH SCH ×2 (08:18→19:30)
[2019-07-11] MEDS: ASPIRIN PO SCH (09:45)
[2019-07-11] MEDS: ESTRACE PO SCH (09:45)
[2019-07-11] MEDS: FLEXERIL PO SCH (09:45)
[2019-07-11] MEDS: COZAAR PO SCH (09:45)
[2019-07-11] MEDS: MIRAPEX PO SCH ×2 (09:46→21:45)
--- NOTE | 2019-07-11 21:20 | PROGRESS NOTE ---
DATE: 07/11/2019 SUBJECTIVE: The patient is doing better and appreciated insert loop monitor for syncope workup. OBJECTIVE: Temperature is 98 degrees, vitals are stable, cachectic. Chest: Clear, irregular heart sounds, heart sounds are very distant. The belly is soft, nontender. The left foot is slowly improving. INVESTIGATIONS: None reported. ASSESSMENT AND PLAN: 1. Syncope. Follow up on insert loop monitor. 2. Left leg cellulitis is improving. 3. Chronic obstructive pulmonary disease (COPD), stable. 4. Cachexia. Increasing the calorie counts. 5. Family decided to go for rehab placement. Drafter Assistant consult. Continue present treatment over the weekend. LEVEL OF DOCUMENTATION: 25 minutes. cc: Gabo Perales MD
[2019-07-11] MEDS: ATIVAN PO SCH (21:47)
[2019-07-12] MEDS: LEVAQUIN 250 MG/D5W 250 MG/50 ML IVPB IV SCH (04:28)
[2019-07-12] MEDS: ESTRACE PO SCH (08:43)
[2019-07-12] MEDS: FLEXERIL PO SCH (08:43)
[2019-07-12] MEDS: MIRAPEX PO SCH ×2 (08:43→21:51)
[2019-07-12] MEDS: COZAAR PO SCH (08:44)
[2019-07-12] MEDS: ASPIRIN PO SCH (08:44)
[2019-07-12] MEDS: SYMBICORT 160/4.5 MICROGM INHALER INH SCH ×2 (08:59→19:40)
[2019-07-12] MEDS: INCRUSE ELLIPTA INH SCH (09:00)
[2019-07-12] MEDS: DUONEB (A & A) INH PRN ×3 (09:00→19:41)
--- NOTE | 2019-07-12 20:53 | PROGRESS NOTE ---
DATE: 07/12/2019 SUBJECTIVE: The patient is stable. Left foot is much improved. OBJECTIVE: Vital Signs: Stable. HEENT: Within normal limits. Neck: Supple. Chest: Clear to auscultation. Heart sounds are regular. Belly is soft, nontender. Good bowel sounds. No obvious deficits noted. ASSESSMENT AND PLAN: 1. Recurrent syncope on insert loop monitor. 2. Left bundle-branch block. Stable. 3. Chronic obstructive pulmonary disease. Stable. 4. Left foot cellulitis. Improving. Intravenous Levaquin 250 daily. 5. Out of the bed with physical therapy. Practice Or Student Teacher consult for rehab placement LEVEL OF DOCUMENTATION: 25 minutes. cc: Gabo Perales MD
[2019-07-12] MEDS: ATIVAN PO SCH (21:51)
[2019-07-13] MEDS: LEVAQUIN 250 MG/D5W 250 MG/50 ML IVPB IV SCH (04:47)
[2019-07-13] MEDS: INCRUSE ELLIPTA INH SCH ×2 (09:20→09:21)
[2019-07-13] MEDS: DUONEB (A & A) INH PRN ×2 (09:21→16:40)
[2019-07-13] MEDS: SYMBICORT 160/4.5 MICROGM INHALER INH SCH ×2 (09:21→20:10)
[2019-07-13] MEDS: ESTRACE PO SCH (09:32)
[2019-07-13] MEDS: ASPIRIN PO SCH (09:32)
[2019-07-13] MEDS: FLEXERIL PO SCH (09:33)
[2019-07-13] MEDS: MIRAPEX PO SCH ×2 (09:33→22:41)
[2019-07-13] MEDS: COZAAR PO SCH (09:33)
[2019-07-13] MEDS: TYLENOL PO PRN (09:37)
--- NOTE | 2019-07-13 16:21 | PROGRESS NOTE ---
DATE: 07/13/2019 SUBJECTIVE: The patient is stable, waiting for placement, no complaints. OBJECTIVE: Vital Signs: Temperature is 98 degrees. Vitals are stable. HEENT Exam: Bruises, ecchymosis improving on the head. Neck: Supple. Chest: Clear. Heart: Sounds are regular. Abdomen: Belly is soft, nontender. Neurologic: No obvious deficits. LABS: None reported. ASSESSMENT AND PLAN: 1. Syncope with left bundle block on inset loop monitor. 2. Chronic obstructive pulmonary disease. Stable. 3. Left leg cellulitis on IV Levaquin. 4. Patient is medically stable waiting to be admitted in rehab placement. 5. Will get transition social worker in the morning. LEVEL OF DOCUMENTATION: 15 minutes. cc: Gabo Perales MD
[2019-07-13] MEDS: ATIVAN PO SCH (22:41)
[2019-07-14] MEDS: LEVAQUIN 250 MG/D5W 250 MG/50 ML IVPB IV SCH (04:46)
[2019-07-14] MEDS: SYMBICORT 160/4.5 MICROGM INHALER INH SCH ×2 (08:34→20:09)
[2019-07-14] MEDS: INCRUSE ELLIPTA INH SCH (08:35)
[2019-07-14] MEDS: COZAAR PO SCH (09:13)
[2019-07-14] MEDS: MIRAPEX PO SCH ×2 (09:13→22:25)
[2019-07-14] MEDS: ESTRACE PO SCH (09:14)
[2019-07-14] MEDS: FLEXERIL PO SCH (09:14)
[2019-07-14] MEDS: ASPIRIN PO SCH (09:14)
[2019-07-14] MEDS: DUONEB (A & A) INH PRN (16:20)
--- NOTE | 2019-07-14 21:58 | PROGRESS NOTE ---
DATE: 07/14/2019 SUBJECTIVE: The patient is here waiting for placement. The patient is doing better. REVIEW OF SYSTEMS: None reported. PHYSICAL EXAMINATION: Temperature is 97 degrees. Vitals are stable. Exam no change. Left leg cellulitis is improving. ASSESSMENT AND PLAN: 1. Left leg cellulitis, better on Levaquin. 2. Syncope, with left bundle branch block on insert loop monitor. I spoke to the social professionals. Waiting to be bed placed tomorrow to [facility]. Will do the paperwork tomorrow. LEVEL OF DOCUMENTATION: [15] cc: Gabo Perales MD MTDD
[2019-07-15] MEDS: ATIVAN PO SCH (01:50)
[2019-07-15] MEDS: LEVAQUIN 250 MG/D5W 250 MG/50 ML IVPB IV SCH (04:31)
--- NOTE | 2019-07-15 08:15 | DISCHARGE SUMMARY ---
ADMISSION DATE: 07/07/2019 DISCHARGE DATE: 07/15/2019 DISCHARGING DIAGNOSES: 1. Left leg cellulitis with Raynaud phenomenon 2. Severe protein calorie malnutrition. 3. Recurrent syncope, rule out cardiac arrhythmias. 4. End-stage chronic obstructive pulmonary disease. 5. Hypertension. 6. Osteoporosis with L1 compression fracture. 7. Hiatal hernia with esophageal stricture. 8. Chronic anxiety. 9. Nonischemic cardiomyopathy, ejection fraction 40% with underlying left bundle-branch block. CONSULTS: Dr. Hennessy. PROCEDURES: Insert loop monitor. BRIEF HISTORY: Please see the H and P that was done on 07/07/2019. In brief, she is a 79-year- old, white female, who had recurrent near-syncope spells with injuries of the head, and also came into the hospital with left leg swelling, redness. HOSPITAL COURSE: 1. As far as head injury, followup neurological exam is intact. 2. Left leg cellulitis. She was given IV Levaquin. Subsequently, cellulitis much improved. 3. Recurrent syncope, rule out cardiac arrhythmias. The patient was seen before by Dr. Oconnor. She has abnormal EKG with left bundle. She had a stress test done in 01/2019. EF is about 35% to 40%. Dr. Hennessy was consulted. The patient was monitored on telemetry, and did not show any evidence of cardiac arrhythmias. The patient was placed insert loop monitor for future syncope spells workup. 4. Cachexia. All the workup was negative for occult malignancy. She was seen by Dietary consult, requiring more calories. 5. At the request of the family, the patient has been transferred to the rehab place. IMAGING AND LABORATORY DATA: CBC: White cell count 11.3, hematocrit 14.5, platelets 264,000. PT 12, INR 0.95, PTT 33. SMA-7: Sodium 140, potassium 4.2, chloride 98, BUN 20, creatinine 0.6. LFTs were normal. CK is normal. ProBNP 1998. Urinalysis is clear. Urine toxic screen was negative. Digoxin level 0.8. Echocardiography: Very mild regurgitation, EF about 35%. CT head: No hemorrhage. Chronic microvascular ischemic changes. Chest x-ray: COPD. DISCHARGE INSTRUCTIONS: Ventolin HFA every 6 hours as needed, Mirapex 0.25 p.o. b.i.d., losartan 50 daily, Lanoxin 125 mcg daily, Estradiol 0.5 mg daily, Prilosec 20 daily, lorazepam 0.5 at bedtime, Lasix 20 mg every other day, Aldactone 25 daily, aspirin 81 mg daily, Symbicort 160/4.5 one puff b.i.d., multivitamin 1 tablet daily, Flexeril 5 mg daily, DuoNeb every 6 hours as needed, Incruse 62.5 mcg daily. Pneumococcal vaccine 13 was given prior to the discharge, and follow up in my office in 2 weeks. cc: Gabo Perales MD MTDD
[2019-07-15] MEDS: FLEXERIL PO SCH (08:34)
[2019-07-15] MEDS: ESTRACE PO SCH (08:34)
[2019-07-15] MEDS: COZAAR PO SCH (08:34)
[2019-07-15] MEDS: MIRAPEX PO SCH (08:34)
[2019-07-15] MEDS: ASPIRIN PO SCH (08:35)
[2019-07-15] MEDS ORDERED: PREVNAR 13 IM ONE (08:40)
[2019-07-15] MEDS: INCRUSE ELLIPTA INH SCH (10:18)
[2019-07-15] MEDS: SYMBICORT 160/4.5 MICROGM INHALER INH SCH (10:18)
[2019-07-15] MEDS: DUONEB (A & A) INH PRN (10:19)
[2019-07-15 11:21] VITALS: BP 114/48
== END 2019-07-15 14:13 | DRG 260 ==
LOC: SUPCPDRO → 4N 08:52 → ED 08:52
PROVIDERS: ADMIT Internal Medicine; ATTEND Internal Medicine